=== PATIENT | female | born 1950 | race Caucasian/White ===

== ENCOUNTER 2017-08-08 21:40 | Emergency (ER) | payer MEDICARE, OTHER ==
[~2017-08-08] VITALS: Ht 167.6 cm; Wt 65.8 kg
--- NOTE | 2017-08-08 21:44 | ER.PDOC ---
General Chief Complaint: Requesting Medical Care Stated Complaint: HEART RACING Time seen by MD: 21:40 Source: patient Exam Limitations: no limitations History of Present Illness Initial Comments Pt was at home drank a glass of cold water and felt that her heart was racing, no chest pain, but a sensation of discomfort in between her shoulder blades, denies shortness of breath or nausea. Timing/Duration: 1-3 hours Severity/Quality: mild Radiation: no radiation Activities at Onset: none Prior CP/Workup: No Prior Chest Pain Nitro Today/Relief: No Nitro Taken Today Aspirin Today: No Aspirin Today Associated Symptoms: denies symptoms Allergies: Uncoded Allergies: CODIENE (Allergy, Mild, 08/08/17) HEADACHE AND VOMITING Constitutional: see HPI EENTM: see HPI Respiratory: see HPI Cardiovascular: see HPI Gastrointestinal: see HPI Genitourinary: see HPI Musculoskeletal: see HPI Skin: see HPI Psychiatric/Neurological: see HPI Endocrine: see HPI Hematologic/Lymphatic: see HPI Physical Exam General Appearance: No Apparent Distress, WD/WN HEENT: PERRL/EOMI, Normal ENT Inspection, TMs Normal, Pharynx Normal Neck: Non-Tender, Full Range of Motion, Supple, Normal Inspection Respiratory: chest non-tender, lungs clear, normal breath sounds, no respiratory distress, no accessory muscle use Cardiovascular: Normal Peripheral Pulses, Regular Rate, Rhythm, No Edema, No Gallop, No JVD, No Murmur Gastrointestinal: Normal Bowel Sounds, No Organomegaly, No Pulsatile Mass, Non Tender, Soft Extremities: Normal Range of Motion, Non-Tender, Normal Inspection, No Pedal Edema, No Calf Tenderness, Normal Capillary Refill 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
--- NOTE | 2017-08-08 21:48 | PCM.EKG ---
[facility] Test Date: 2017-08-08 Test Time: 21:50:27 Pat Name: TRISTEN JOHN [facility]: [id number] Room: Gender: F Broadcast Field Supervisor: CAROL : 1950 Requested By: KULWINDER FERRELL Order Number: [id number] Reading MD: Measurements Intervals [place] Rate: 83 P: 56 PA: 170 QRS: 18 QRSD: 70 T: 19 QT: 340 QTc: 399 Interpretive Statements Normal sinus rhythm Low voltage QRS Borderline ECG No previous ECG available for comparison Please click the below link to view image of tracing.
--- NOTE | 2017-08-08 22:01 | NUR ---
IV STARTED TO L FA 20GG, X2 ATTEMPTS. LABS DRAWN. PT TOLERATED WELL.
--- NOTE | 2017-08-08 22:02 | NUR ---
PORTABLE CHEST XRAY COMPLETE.
[2017-08-08 22:07] LABS: BASOPHIL % 0.1 % (0.0-0.2); EOSINOPHIL # 0.1 10^3/uL (0.0-0.2); EOSINOPHIL % 0.9 % (0.0-5.0); HEMOGLOBIN 14.2 g/dL (12.0-15.0); LYMPHOCYTES # 3.6 10^3/uL (1.0-4.8); LYMPHOCYTES % 52.2 % (24.0-44.0); MEAN CELL HGB 30.9 pg (26-34); MEAN CELL HGB CONCENTRATION 33.9 g/dL (33-37); MEAN CORP VOLUME 91.3 fL (78-100); MONOCYTES # 0.5 10^3/uL (0.3-0.8); MONOCYTES % 6.6 % (5.0-12.0); NEUTROPHIL # 2.8 10^3/uL (1.8-7.7); NEUTROPHILS % 40.1 % (41.0-85.0); RED CELL DISTRIBUTION WIDTH 13.7 % (11.5-14.5); WHITE BLOOD CELL 6.9 10^3/uL (4.5-11.0)
--- NOTE | 2017-08-08 22:13 | DIREP ---
PROCEDURE:CHEST 1 VIEW COMPARISON:None. INDICATIONS:chest pain FINDINGS: LUNGS/PLEURA:No significant pulmonary parenchymal abnormalities. No effusions. VASCULATURE:Normal. Unremarkable pulmonary vasculature. CARDIAC:Normal. No cardiac silhouette abnormality or cardiomegaly. MEDIASTINUM:Normal. No visible mass or adenopathy. BONES:Normal. No fracture or visible bony lesion. OTHER:Negative. CONCLUSION:Normal examination. Dictated by: Austin Yao M.D. on 08/08/2017 at 10:12 PM
[2017-08-08 22:44] LABS: ALANINE AMINOTRANSFERASE 28 U/L (12-78); ALKALINE PHOSPHATASE 101 U/L (50-136); CALCIUM 8.8 mg/dL (8.4-10.5); CARBON DIOXIDE 24.3 mmol/L (20.0-32); GLUCOSE 129 mg/dL (70-110)
[2017-08-08 23:03] LABS: ASPARTATE AMINO TRANSFERASE 30 U/L (0-35)
--- NOTE | 2017-08-08 23:05 | NUR ---
IV removed. Tip intact. Pressure held. Dressed with cottonball and coban. Pt tolerated well.
[2017-08-08 23:20] VITALS: BP 135/93
== END 2017-08-08 23:15 | disposition home or self-care (01) ==
LOC: ER 21:40
DX: R07.9 Chest pain, unspecified (principal); R00.2 Palpitations
CPT/HCPCS: 36415; 71010; 80053; 82553; 83880; 84484; 85025; 85610; 93005; 99285